=== PATIENT | female | born 1990 | race Caucasian/White ===

== ENCOUNTER 2018-06-06 06:55 | Day surgery (SDC) | payer BC, SELFPAY ==
--- NOTE | 2018-06-06 | IMM_PTH ---
PATIENT: PRADIP LINARES LOC: [facility] – [place] U#:[id number] AGE/SX: 27/F ROOM: RE06/06/[address]: Dr. Sarthak Boston MD : 1990 BED: DIS: 06/06/2018 SPEC #: [id number] RECD: 06/09/18 14:09 STATUS: JONO MAY #: [id number] JENNIFER: 06/06/18 00:[address]: Sarthak Boston DEPT: IMMUNOHISTOCHEMISTRY RECD BY: Estrellita Camacho ENTERED: 06/09/18 14:10 SP TYPE: IMMUNO OTHR DR: Dr. Patricia Mobley, DO Tissues: A - Tonsil, NOS B - Tonsil, NOS Procedures: CD20 (add) CD45 (add) CD5 (add) CD79A (add) Pankeratin (add) CD3 (initial) PHYSICIAN & INSTITUTION [place] [address] SPECIMEN INFORMATION: Tissue Source: A - Right tonsil, B - Left tonsil Clinical Info: Chronic tonsillitis, reactive lymphadenopathy Specimen Number: [id number] A & B CPT code: 90872 x2, 12551 x10 METHODOLOGY: Deparaffinized sections of prefer/formalin-fixed tissue or PAP/DQ stained slides are incubated with monoclonal/polyclonal antibodies/oligonucleotide probes. Localization is made via biotin free immunoperoxidase method. Appropriate controls are performed and reacted as expected. Results on target cell population are indicated in the following table: RESULTS: ANTIBODY / CLONE RESULT Block A CD3 (PS1) positive CD5 (SP10) positive CD20 (L26) positive CD45 (RP2/18) positive CD79a (11E3) positive AE1-3 (AE1/AE3/PCK26) negative Block B CD3 (PS1) positive CD5 (SP10) positive CD20 (L26) positive CD45 (RP2/18) positive CD79a (11E3) positive AE1-3 (AE1/AE3/PCK26) negative These tests were developed and their performance characteristics determined by [facility]. They may not have been cleared or approved by the U.S. Food and Drug Administration. The FDA has determined that such clearance or approval is not necessary. INTERPRETATION: A. Right tonsil, tonsillectomy: Polytypic lymphoid tissue. B. Left tonsil, tonsillectomy: Polytypic lymphoid tissue. AM:bryant 06/10/18 Comment: No evidence of lymphoproliferative disorder.
--- NOTE | 2018-06-06 | TONS_PTH ---
PATIENT: PRADIP LINARES LOC: [facility] – [place] U#:[id number] AGE/SX: 27/F ROOM: RE06/06/[address]: Dr. Sarthak Boston MD : 1990 BED: DIS: 06/06/2018 SPEC #: [id number] RECD: 06/06/18 12:46 STATUS: JONO MAY #: [id number] JENNIFER: 06/06/18 00:[address]: Sarthak Boston DEPT: SURGICAL PATHOLOGY RECD BY: Harshal Joe ENTERED: 06/06/18 12:46 SP TYPE: TONSILS OTHR DR: Dr. Patricia Mobley, DO Tissues: A - Tonsil, NOS B - Tonsil, NOS Procedures: Surgery Specimen Level III HEADER OPERATION: Tonsillectomy PRE-OP DIAGNOSIS: Chronic tonsillitis, reactive lymphadenopathy TISSUE SUBMITTED: A - Right tonsil, B - Left tonsil MICROSCOPIC DIAGNOSIS A. Right tonsil, tonsillectomy: Benign lymphoid hyperplasia, consistent with chronic tonsillitis. B. Left tonsil, tonsillectomy: Benign lymphoid hyperplasia, consistent with chronic tonsillitis. AM:bryant COMMENT A & B. Immunohistochemistry ([id number]) supports the above diagnosis. MICROSCOPIC DESCRIPTION Slides are reviewed. GROSS DESCRIPTION A - Received in formalin labeled with the patient's name and designated right tonsil. The specimen consists of a tonsil that weighs 6.4 gm and measures 4.2 x 2.5 x 1.5 cm. The external surface is pink-up, smooth, glistening and somewhat lobulated. Focally it is hemorrhagic, granular and bears cautery artifact. Serial cross sections through the tonsil reveal normal tonsillar architecture. [employer]ant sections are submitted in one cassette. B - Received in formalin labeled with the patient's name and designated left tonsil. The specimen consists of a tonsil that weighs 6.8 gm and measures 4.2 x 2.5 x 1.5 cm. The external surface is pink-up, smooth, glistening and somewhat lobulated. Focally it is hemorrhagic, granular and bears cautery artifact. Serial cross sections through the tonsil reveal normal tonsillar architecture. [employer] Performance Consultant sections are submitted in one cassette. / AM:bryant 06/06/18 TC:5 CPT: 89555 x2
[2018-06-06 07:10] VITALS: BP 117/84; PULSE 85; RESP 18; TEMP 36.6; O2SAT 99; BMI 28.8
[2018-06-06 07:20] LABS: Internal QC Validated? YES +Cl - CLEAR BKGD; Pregnancy, Urine Negative Negative
[2018-06-06] MEDS: Bacitracin 500 UNITS/GM PACKET (08:30)
[2018-06-06 08:47] LABS: Hematocrit 39.6 % (37-47); Hemoglobin 13.1 g/dl (12.0-15.0); Mean Corp Hgb Conc 33.1 g/gl (32-36); Mean Corpuscular Volume 90.6 fL (81-99); Mean Platelet Vol. 10.2 fl (6.2-12.0); Platelet Count 184 K/mm3 (150-450); RBC Distribution Width CV 14.6 % (11.6-14.6); RBC Distribution Width SD 48.9 fl (35.1-43.9); Red Blood Count 4.37 M/mm3 (4.2-5.4); Scan Indicated on CBC? Y/N NO; White Blood Count 11.4 K/mm3 (4.4-11.0)
--- NOTE | 2018-06-06 08:57 | OP.PCM_ITS ---
Problem List (1) Chronic tonsillitis Status: Chronic (2) Generalized enlarged lymph nodes Status: Chronic Report of Operation Date of Procedure: 06/06/18 Pre-Operative Diagnosis: Chronic tonsillitis, cervical lymphadenopathy, h/o ITP Post-Operative Diagnosis: Same Surgery/Procedure Performed:: Tonsillectomy Description of Surgical Findings:: Michelle is a 27-year-old female who presents valuation of recurrent and severe streptococcal tonsillitis with 6-7 episodes in the last year as well as recurring episodes more than 3-year over the last 3 years. Is becoming by fever over 103 and persistent tonsillar enlargement and throat pain as well as cervical lymphadenopathy. 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 Given the persistence and severity of her tonsillitis the above procedure was offered with the elevated risk of bleeding in the setting discussed and she was eager to proceed. The risks, alternatives, potential benefits, and complications were discussed at length and any questions answered to the patient and/or caregiver's satisfaction. Witnessed informed consent was obtained in the office, and the patient and/or caregiver was agreeable to proceed. Procedure went as follows: The patient was identified in the preoperative holding, brought to the operating room, was placed under general anesthesia and intubated. When appropriate anesthesia was obtained, the head of bed was rotated and the patient prepped and draped in usual sterile fashion. A Khloe Clive mouthgag was then placed and the patient suspended from the [place] stand. The oral cavity examined and is noted to have 3+ cryptic tonsillar hypertrophy. Beginning on the right side the right tonsil was then grasped with a curved tenaculum and dissected from the underlying capsule with monopolar cautery. The tonsil was noted to be quite friable but no excessive bleeding was encountered and the wound bed was dry upon completion of the resection. This was then sent as specimen. Similar procedure was then completed on the contralateral side. The oral and nasal cavities were then irrigated with saline solution, an NG tube was then placed to decompress the stomach. The patient was then returned to anesthesia, revived and extubated having tolerated the procedure well. Type of Anesthesia:: General Anesthesiologist: Sarthak Diehl Special Medications: none Specimen's removed: bilateral tonsils Drains: none Estimated Blood Loss (mL): 10 mL Fluids Replaced: 1000 mL Grafts/Implants Used: none - Complications none - Admit VTE Documentation VTE Present on Admission: No VTE Mechan Device Prophylaxis: SCD's VTE Pharm Prophylaxis ordered?: No
--- NOTE | 2018-06-06 08:59 | DCINST_ITS ---
Discharge Diet: No Restrictions Discharge Activity: Return to Normal Activity, May not drive while taking narcotic pain medications. Call your doctor if your incision/area has: Sudden Increased Bleeding Call your doctor if you observe: Fever of 101 or Higher, Uncontrolled pain Allergies/Adverse Reactions: Allergies Penicillins [PCN] Allergy (Verified 06/03/18 09:37) Rash Medications to take at Discharge Citalopram [Celexa] 20 mg PO DAILY 06/03/18 Estradiol/Norethindrone Acet [[place] 1-0.5 mg Tablet] 1 each PO DAILY 06/03/18 Primary Care Physician: Patricia Mobley DO [Primary Care Provider] - Test Results: Test results from this visit will be discussed in further detail at your follow- up appointment, if applicable. Please Follow Up With: Sarthak Boston MD When: 2 weeks
[2018-06-06 09:00] VITALS: BP 117/84; BP 88/75; PULSE 145; RESP 16; TEMP 36.2; O2SAT 96
[2018-06-06 09:15] VITALS: BP 117/84; BP 121/73; PULSE 125; RESP 16; O2SAT 95
[2018-06-06 09:20] VITALS: BP 117/84; BP 117/86; PULSE 117; RESP 16; TEMP 36.4; O2SAT 94
[2018-06-06 10:15] VITALS: BP 117/84; BP 122/80; PULSE 116; RESP 16; TEMP 36.8; O2SAT 97
== END 2018-06-06 12:47 | disposition home or self-care (01) ==
LOC: SDC 06:56 → AC 06:58
PROVIDERS: Family Provider Internal Medicine; PCP Internal Medicine; Referring Provider Otolaryngology; Visit Provider Otolaryngology
PROC: (CPT 42826; principal; 2018-06-06 07:50)
DX: J35.01 Chronic tonsillitis (principal); D69.3 Immune thrombocytopenic purpura; R59.1 Generalized enlarged lymph nodes
CPT/HCPCS: 42826; 81025; 85027; 88304; 88341; 88342; J7120; J2405